=== PATIENT | male | born 1975 | race Caucasian/White ===

== ENCOUNTER 2017-04-14 19:46 | Observation (INO) ==
--- NOTE | 2017-04-14 19:55 | Emergency Department Note ---
Disposition Clinical Impression: CHI (closed head injury) Disposition: Admitted As Inpatient Condition: Fair Referrals: Kevin Fine CNP [Primary Care Provider] - Time of Disposition: 00:25 ([facility]) Head Injury HPI - General Chief complaint: ED Head Injury Stated complaint: HEAD INJURY FROM FALLING TREE LIMB Time Seen by Provider: 04/14/17 19:46 Source: patient, EMS Mode of arrival: EMS Limitations: no limitations Nursing Notes Reviewed: Yes Vital Signs Reviewed: Yes - History of Present Illness HPI Narrative: Patient was standing underneath the tree trying to cut a brainstem which fell down and struck and hit him in the top of his head causing some abrasions he is unclear whether he has lacerations which require suture repair he said that in route he started getting a little bit double vision as a headache from where he was struck and hit the head but there is no loss of consciousness he denies any chest pain chest pressure palpitations cough hemoptysis sputum production diarrhea melena hematochezia or hematemesis on initial presentation here to the emergency room After the patient was here in the emergency room the patient started complaining of some midsternal chest pain EKG was done as well as initial troponin there was a waterline troponin 0.03 was repeated 2 hours later at 0.040 result he was admitted for observation transferred to [facility] for serial enzymes to make sure there was no underlying cardiac event was being masked by the head injury there was no loss of consciousness he has had no vomiting no further visual changes while here in the emergency room other than complaining of a headache from where he was struck in the head patient was transferred to [facility] Pt Subjective Complaint: head injury Onset (ago): Just [employer] Arrival Conditions: negative: C-spine immobilization present Mechanism of Injury: other (Struck in head by a tree branch) Place: outdoors Loss of Consciousness: no Location of injury: parietal, temporal, occipital Pain Severity: moderate, severe Pain Scale: 8 Quality: dull, aching Radiation: neck Other Injuries: laceration ( abrasion) Associated symptoms: Reports: confusion, vision changes. Denies: amnesia, repetitive questioning, nausea, vomiting, vertigo, syncope, numbness, weakness, tingling, neck pain - Related Data Home Medications Medication Instructions Recorded Confirmed glipiZIDE [Glucotrol] 10 mg PO 0800 08/23/15 04/14/17 metFORMIN [Glucophage] 500 mg PO BID 08/23/15 04/14/17 Proair Hfa 2 inh BID 09/19/16 04/14/17 Ranitidine HCl 150 mg PO DAILY 09/19/16 04/14/17 Previous Rx's Medication Instructions Recorded Methocarbamol [Robaxin-750] 750 mg PO TID PRN #20 tablet 09/19/16 Allergies/Adverse reactions: Allergies Allergy/AdvReac Type Severity Reaction Status Date / Time ibuprofen [From Motrin] Allergy Vomiting Verified 08/24/15 12:31 All systems ED: reviewed and negative except as stated. Review of Systems: As Per HPI Constitutional: Denies: fever, chills Eyes: Reports: vision change ENT ED: Denies: ear pain, throat pain, congestion Cardiovascular: Denies: chest pain, palpitations, dyspnea on exertion Respiratory: Denies: cough, dyspnea, wheezes Gastrointestinal: Denies: abdominal pain, nausea, vomiting Genitourinary: Denies: urgency, dysuria, frequency Musculoskeletal: Reports: neck pain. Denies: back pain, joint swelling Integumentary: Reports: abrasion. Denies: rash, lesions Neurological: Reports: headache. Denies: weakness, numbness, paresthesias Psychiatric: Denies: anxiety, depression Endocrine: Denies: fatigue Hematological/Lymphatic: Denies: easy bleeding Allergic/Immunologic: Denies: facial swelling Past Medical History - Past Medical History Attestation: Yes The following information was validated with the patient. Source: patient, old records reviewed, nursing notes reviewed Medical history: Reports: asthma, diabetes Psychiatric history: Reports: no psych history - Social History Smoking Status: Never smoker Smokeless Tobacco Status: No Alcohol use: Reports: none Drug use: Reports: none Physical Exam - General Limitations: no limitations General appearance: alert, in no apparent distress, anxious - Head Head exam: normocephalic, normal inspection - Expanded Head Exam 1 - Linear abrasion 2 - Hematoma 3 - Hematoma - Eye Eye exam: Present: normal appearance, PERRL, EOMI - ENT ENT exam: normal exam, normal oropharynx, mucous membranes moist, TM's normal bilaterally, normal external ear exam - Neck Neck exam: Present: normal inspection, full ROM, trachea midline - Chest Chest inspection: Present: normal inspection, symmetric chest wall rise - Respiratory Respiratory exam: Present: normal lung sounds bilaterally - Cardiovascular Cardiovascular exam: Present: regular rate, normal rhythm, normal heart sounds - Abdominal Exam Abdominal exam: Present: soft, Non-Tender, normal bowel sounds. Absent: mass, pulsatile mass - Extremities Exam Extremities exam: Present: normal inspection, full ROM, normal capillary refill. Absent: tenderness, pedal edema, joint swelling, calf tenderness - Expanded Lower Extremity Exam Neurovascular/Tendon exam: Present: normal capillary refill, normal fine/light touch Gait: observed and normal - Back Exam Back exam: Present: normal inspection, full ROM. Absent: muscle spasm - Neurological Exam Neurological exam: Present: alert, oriented X3, CN II-XII intact - Psychiatric Psychiatric exam: Present: normal affect, normal mood - Skin Skin exam: Present: warm, dry, intact, normal color Course Course Narrative: Seen and examined CT performed including CT of the neck - Reevaluation(s) Reevaluation #1: On completion of the CT of the head and the neck the patient was resting comfortably then the patient started complaining of midsternal chest pain which shortly resolved after had started EKG and cardiac labs were done patient had a repeat troponin 2 hours later which showed that there is a minimal change of the troponin he was admitted for observation to rule out cardiac event patient is transferred to [facility] services of Dr. Douglass cases been discussed stable at transfer patient was given aspirin in the emergency room Head Injury - [facility] Narrative Medical decision making narrative: scalp abrasions rule out lacerations - Differential Diagnosis Differential Diagnosis: Likely: concussion without loss of consciousness, closed head injury - Medical Records Medical records reviewed: Yes I reviewed the patient's medical records. - Radiology Data Radiology results reviewed: Yes I reviewed the patient's radiology results. Critical Care Time Critical Care Time: No
[2017-04-14 21:06] LABS: Basophils # 0.1 K/mcL (0.0-0.2); Basophils % 0.4 %; Eosinophils # 0.1 K/mcL (0.0-0.6); Eosinophils % 0.7 %; Hematocrit 38.7 % (37.5-50.1); Hemoglobin 13.8 g/dL (12.9-16.9); Immature Granulocytes % 0.4 % (0-4); Lymphocytes # 1.4 K/mcL (0.6-4.6); Lymphocytes % 8.8 %; Mean Corpuscular HGB Conc 35.7 g/dL (31.6-35.5); Mean Corpuscular Hemoglobin 30.6 pg (28.0-33.3); Mean Corpuscular Volume 85.8 fL (83.0-100.0); Mean Platelet Volume 10.9 fL (9.4-12.4); Monocytes % 6.2 %; Neutrophils # 13.1 K/mcL (1.6-8.9); Platelet Count 196 K/mcL (140-400); Red Blood Count 4.51 M/mcL (4.19-5.50); Red Cell Distribution Width 12.3 % (11.5-14.5); Segmented Neutrophils % 83.5 %
[2017-04-14] MEDS ORDERED: *HR* HYDROcodone/Acet 5/325 mg TABLET PO ONE (21:16)
[2017-04-14 21:20] LABS: BUN/Creatinine Ratio 18 (6-26); Blood Urea Nitrogen 15 mg/dL (8-26); Calcium 8.9 mg/dL (8.6-10.8); Carbon Dioxide 25 mEq/L (19-29); Chloride 104 mEq/L (98-109); Glucose 163 mg/dL (70-99); Osmolality,Calculated 292 (280-300); Potassium 3.6 mEq/L (3.5-4.5); Sodium 139 mEq/L (136-145); eGFR For African Americans > 60 (> 60); eGFR For Non-African Americans > 60 (> 60)
[2017-04-15] MEDS ORDERED: Aspirin 81 MG TAB.CHEW PO ONE (00:25)
[2017-04-15] MEDS ORDERED: *HR* Enoxaparin 40 MG/0.4 ML SYRINGE SQ ONE (00:26)
[2017-04-15] MEDS ORDERED: 0.9 % Sodium Chloride 1,000 ML IVC SCH ×2 (00:30→02:54)
[2017-04-15] MEDS ORDERED: Ondansetron 4 MG/2 ML VIAL IVP ONE (00:38)
[2017-04-15] MEDS ORDERED: *HR* Morphine 2 MG/ML SYRINGE IVP ONE (00:38)
[2017-04-15 01:07] LABS: Basophils # 0.1 K/mcL (0.0-0.2); Basophils % 0.6 %; Eosinophils # 0.2 K/mcL (0.0-0.6); Hematocrit 37.9 % (37.5-50.1); Hemoglobin 13.5 g/dL (12.9-16.9); Immature Granulocytes % 0.4 % (0-4); Lymphocytes # 2.9 K/mcL (0.6-4.6); Lymphocytes % 25.8 %; Mean Corpuscular HGB Conc 35.6 g/dL (31.6-35.5); Mean Corpuscular Hemoglobin 30.7 pg (28.0-33.3); Mean Corpuscular Volume 86.1 fL (83.0-100.0); Mean Platelet Volume 11.4 fL (9.4-12.4); Monocytes % 8.6 %; Neutrophils # 7.1 K/mcL (1.6-8.9); Platelet Count 196 K/mcL (140-400); Red Cell Distribution Width 12.3 % (11.5-14.5); Segmented Neutrophils % 62.6 %
[2017-04-15 01:17] LABS: Prothrombin Time 10.7 Seconds (9.4-12.1)
[2017-04-15 01:20] LABS: Activated Partial Thrombo Time 29.9 Seconds (26.0-36.0)
[2017-04-15 01:25] LABS: BUN/Creatinine Ratio 17 (6-26); Blood Urea Nitrogen 14 mg/dL (8-26); Calcium 8.6 mg/dL (8.6-10.8); Carbon Dioxide 24 mEq/L (19-29); Chloride 104 mEq/L (98-109); Glucose 229 mg/dL (70-99); Osmolality,Calculated 292 (280-300); Potassium 3.5 mEq/L (3.5-4.5); Sodium 137 mEq/L (136-145); eGFR For African Americans > 60 (> 60); eGFR For Non-African Americans > 60 (> 60)
[2017-04-15] MEDS ORDERED: Methocarbamol 500 MG TABLET PO PRN (02:54)
[2017-04-15] MEDS ORDERED: Ondansetron ODT 4 MG TAB.RAPDIS SL PRN (02:54)
[2017-04-15] MEDS ORDERED: Naloxone 0.4 MG/ML INJ IVP PRN (02:54)
[2017-04-15] MEDS ORDERED: Famotidine 20 MG TABLET PO SCH (06:30)
[2017-04-15] MEDS ORDERED: D5% in Water 1,000 ML IVC PRN (07:34)
[2017-04-15] MEDS ORDERED: *HR* Dextrose 50 % in Water (Syg) 50 ML SYRINGE IVP PRN (07:34)
[2017-04-15] MEDS ORDERED: Dextrose Gel 15 GM PO PRN ×2 (07:34)
[2017-04-15] MEDS ORDERED: traMADol 50 MG TABLET PO PRN (07:45)
[2017-04-15] MEDS ORDERED: *HR* Metformin 500 MG TABLET PO SCH (08:00)
[2017-04-15] MEDS ORDERED: *HR* GlipiZIDE 5 MG TABLET PO SCH (08:00)
[2017-04-15 09:29] LABS: BUN/Creatinine Ratio 14 (6-26); Blood Urea Nitrogen 10 mg/dL (8-26); Calcium 8.3 mg/dL (8.6-10.8); Carbon Dioxide 22 mEq/L (19-29); Chloride 106 mEq/L (98-109); Glucose 137 mg/dL (70-99); Osmolality,Calculated 285 (280-300); Sodium 137 mEq/L (136-145); eGFR For African Americans > 60 (> 60); eGFR For Non-African Americans > 60 (> 60)
[2017-04-15] MEDS ORDERED: Insulin LISPRO 300 UNITS/3 ML VIAL SQ SCH (11:30)
[2017-04-15 12:07] VITALS: BP 125/73
--- NOTE | 2017-04-15 13:03 | Internal Med History&Physical ---
Date of Encounter: 04/15/17 Time of Encounter: 12:30 Assessment and Plan (1) CHI (closed head injury) Current visit: Yes Status: Acute Radiographic studies were unremarkable. He will be given analgesics as needed. Qualifiers: Encounter type: initial encounter Qualified Code(s): S09.90XA - Unspecified injury of head, initial encounter (2) Neutrophilic leukocytosis Current visit: Yes Status: Acute Now resolved with WBC 11.4 and segs 62.6%. Will not workup or treat further. Internal Medicine - H&P: HPI Chief complaint: Head trauma Admitted From: Emergency Dept Plans for Post Hospital Care: Home History of present illness: Mr. Partida is a 41 year old male who came to emergency room after a tree branch fell on his head and knocked him to the ground. He sustained had lacerations but did not require sutures in the emergency room. He did not have loss of consciousness. He complained of some chest discomfort in emergency room and was admitted to [facility] floor for ongoing care needs. He reports he has some discomfort at present time in his left shoulder, thorax, extending down into his left upper leg. He has been able to ambulate to the bathroom and had a BM. He has not had difficulty in urination. He has not had headaches vertigo diplopia or other neurologic symptoms. Past Med Surg Social Fam HX - Past Medical History Medical history: asthma, diabetes Psychiatric history: no psych history - Social History Smoking Status: Never smoker Smokeless Tobacco Status: No Alcohol use: none Drug use: none Internal Medicine - H&P: Meds metFORMIN [Glucophage] 500 mg PO BID 08/23/15 [History] Methocarbamol [Robaxin-750] 750 mg PO TID PRN #20 tablet 09/19/16 [Rx] Proair Hfa 2 inh BID 09/19/16 [History] Ranitidine HCl 150 mg PO DAILY 09/19/16 [History] 3 Allergy/AdvReac Type Severity Reaction Status Date / Time ibuprofen [From Motrin] Allergy Vomiting Verified 08/24/15 12:31 All Systems PM: A 10-system review of systems was performed and is negative for pertinent findings except as documented above in the HPI. Review of systems: Gen.: He states his weight has been stable past few months Cardiovascular: He denies TN hypertension heart failure angina DVT or pulmonary embolus Respiratory: He smoked from age [age]. He denies chronic lung disease. GI: He denies disorders of his liver gallbladder or exocrine pancreas : He denies hematuria dysuria or kidney stones Neurologic: He denies large distribution strokes or seizures Endocrine: He was diagnosed with DM 2 in 2012. Denies thyroid disease or hyperlipidemia Hematology/oncology: Denies blood disorders cancers or anemia Psychiatric: He denies anxiety depression or other mental health issues Musk skeletal: He denies arthritis gout or other bone joint or muscle disorders. - Constitutional Vitals: Temp Pulse Resp BP Pulse Ox 97.6 F 70 18 125/73 98 04/15/17 11:27 04/15/17 11:27 04/15/17 11:27 04/15/17 11:27 04/15/17 11:27 Exam: Gen.: He is a well-developed well-nourished male who appears in no acute distress HEENT: He has very short haircut. He has at 3 shallow abrasions/lacerations on his scalp. Eyes: EOMI. There is no scleral icterus. Mouth: Mucosa is moist. Neck: Supple and nontender. There is no thyromegaly or adenopathy noted. Heart: Regular without murmurs gallops or ectopics Lungs: No wheezes or crackles are heard. Abdomen: Soft and nontender. No masses or guarding are noted. Extremities: There is no cyanosis edema or clubbing noted. Dorsalis pedis and posterior tibial pulses are 1-2 over 2 bilaterally. Neurologic: Mental status: He is talkative and a good historian. Cranial nerves : Smile is symmetric. Forehead wrinkles bilaterally. Tongue protrudes midline. EOMI. Motor: There is no pronator drift. Cerebellar: Finger to nose is intact bilaterally. Skin: Warm and dry. He has ecchymosis and very shallow abrasions on his scapular areas bilaterally. He has a few shallow abrasions on his lower legs bilaterally. Internal Med - H&P Results - Labs CBC & Chem 7: 04/15/17 00:45 04/15/17 09:00 Labs: BMP 04/15/17 09:00 Sodium 137 Potassium 4.0 Chloride 106 Carbon Dioxide 22 BUN 10 Creatinine 0.74 Glucose 137 H Calcium 8.3 L Cardiac Enzymes 04/15/17 Range/Units 09:00 Troponin I 0.01 (0-0.03) ng/mL
--- NOTE | 2017-04-15 13:21 | Discharge Summary ---
Date of Encounter: 04/15/17 Time of Encounter: 12:30 - Discharge Diagnosis (1) CHI (closed head injury) Priority: Primary Status: Acute Qualifiers: Encounter type: initial encounter Qualified Code(s): S09.90XA - Unspecified injury of head, initial encounter (2) Neutrophilic leukocytosis Priority: Secondary Status: Resolved - Discharge Medications Prescriptions: HYDROcodone/Acet 5/325 mg [[place] 5-325 mg] 1 tab PO Q4H PRN #12 tab PRN Reason: Pain Home Medications: metFORMIN [Glucophage] 500 mg PO BID 08/23/15 [History] Methocarbamol [Robaxin-750] 750 mg PO TID PRN #20 tablet 09/19/16 [Rx] Proair Hfa 2 inh BID 09/19/16 [History] Ranitidine HCl 150 mg PO DAILY 09/19/16 [History] HYDROcodone/Acet 5/325 mg [[place] 5-325 mg] 1 tab PO Q4H PRN #12 tab 04/15/17 [Rx ] Allergies/Adverse Reactions: 3 Allergy/AdvReac Type Severity Reaction Status Date / Time ibuprofen [From Motrin] Allergy Vomiting Verified 08/24/15 12:31 Date of admission: 04/15/17 01:05 Primary care physician: Kevin Fine CNP - Patient Status Disposition: Home, Self-Care Condition: Fair Functional capacity at discharge: independent ambulation Overall status at discharge: patient is progressing back to baseline - Discharge Instructions Follow Up With: Kevin Fine CNP [Primary Care Provider] - 1 week - Diet and Activity Activity: resume usual activities as tolerated Diet: advance to your usual diet Hospital course: Mr. Partida is a 41 year old male who came to emergency room after a tree branch fell on his head and knocked him to the ground. He sustained had lacerations but did not require sutures in the emergency room. He did not have loss of consciousness. He complained of some chest discomfort in emergency room and was admitted to [facility] for ongoing care needs. Initial orders were written by the emergency room physician. I saw him on April 15 and performed a history and physical. Repeat cardiac enzymes showed no evidence of myocardial damage. 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 I felt this pain was musk skeletal in origin. He had deep tissue bruising seen on his bilateral scapular area more on the right than the left. He will be off work until 04/18/2017. I encouraged him to follow with his PCP Kevin Fine CNP within one week. He will be given 12 [place] for prn use for pain. - Time Spent with Patient Total time spent providing and/or coordinating discharge services: - Constitutional Vitals: Temp Pulse Resp BP Pulse Ox 97.6 F 70 18 125/73 98 04/15/17 11:27 04/15/17 11:27 04/15/17 11:27 04/15/17 11:27 04/15/17 11:27
--- NOTE | 2017-04-18 07:01 | Electrocardiograph Report ---
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
== END 2017-04-15 14:00 | disposition home or self-care (01) ==
LOC: INPPIK 19:46 → EMEROOPIK 19:46 → INPPIK 04-15 02:30
PROVIDERS: ADMIT Internal Medicine; ATTEND Internal Medicine